=== PATIENT | male | born 1990 | race Asian ===

== ENCOUNTER 2020-12-11 14:50 | Emergency (ER) | payer OTHER ==
[~2020-12-11] VITALS: Ht 172.7 cm; Wt 102.1 kg
[2020-12-11 18:42] VITALS: BP 122/84
== END 2020-12-11 18:53 | disposition home or self-care (01) ==
LOC: ER 14:50
DX: M25.562 Pain in left knee (principal); M25.561 Pain in right knee; G89.29 Other chronic pain